=== PATIENT | male | born 1940 | race Caucasian/White ===

== ENCOUNTER 2020-05-25 15:04 | Inpatient (IN) | payer MEDICARE, OTHER ==
[~2020-05-25] VITALS: Ht 170.2 cm; Wt 75.7 kg
[2020-05-25 15:47] LABS: BASOPHILS # (AUTO) 0.1 (0.0-0.1); BASOPHILS % 0.9 % (0.0-1.0); EOSINOPHILS # (AUTO) 0.1 (0.0-0.4); EOSINOPHILS % 2.2 % (0.0-6.0); HEMATOCRIT 30.5 % (38.2-49.6); HEMOGLOBIN 10.1 g/dL (14.0-18.0); LYMPHOCYTES # (AUTO) 0.7 (1.0-3.2); LYMPHOCYTES % 11.6 % (18.0-39.1); MEAN CORPUSCULAR HGB CONC 33.1 g/dL (31-35); MEAN CORPUSCULAR VOLUME 96.5 fL (81-99); MONOCYTES # (AUTO) 0.4 (0.2-0.8); MONOCYTES % 6.1 % (4.4-11.3); NEUTROPHILS # (AUTO) 4.3 (2.1-6.9); NEUTROPHILS % 74.9 % (38.7-80.0); PLATELET COUNT 107 x10e3/uL (140-360); RED BLOOD COUNT 3.16 x10e6/uL (4.3-5.7); RED CELL DISTRIBUTION WIDTH 13.9 % (11.7-14.4)
[2020-05-25 16:11] LABS: ALBUMIN 2.9 g/dL (3.5-5.0); ALBUMIN/GLOBULIN RATIO 0.8 (0.8-2.0); ANION GAP 13.7 mmol/L (8-16); CALCIUM 8.7 mg/dL (8.4-10.2); CREATININE, SERUM 3.16 mg/dL (0.72-1.25); POTASSIUM 3.7 mmol/L (3.5-5.1)
[2020-05-25 16:19] LABS: CREATINE KINASE MB 6.9 ng/mL (0-5.0)
--- NOTE | 2020-05-25 16:30 | NUR ---
Notified Dr. Sebastian of abnormal labs.
[2020-05-25 16:47] LABS: EOSINOPHILS % (MANUAL) 4 % (0-7); HYPOCHROMASIA MODERATE; LYMPHOCYTES % (MANUAL) 19 % (19-48); MONOCYTES % (MANUAL) 7 % (3.4-9.0); NEUTROPHILS % (MANUAL) 65 % (40-74); POLYCHROMASIA FEW; RBC MORPHOLOGY COMMENT ABNORMAL; STOMATOCYTES SLIGHT
[2020-05-25 16:48] LABS: PLATELET ESTIMATE SLIGHTLY DECREASED; PLATELET MORPHOLOGY COMMENT FEW LARGE
--- NOTE | 2020-05-25 17:34 | Emergency Department Note ---
History of Present Illnes History of Present Illness Chief Complaint: General Medicine Complaints History of Present Illness This is a 79 year old male arrived to the ED after abnormal labs are noted PCPs office. Patient complaining of generalized malaise and weakness. Chief Complaint Comment PATIENT IN [facility] WITH COMPLAINTS OF FEVER AND GENERAL MALAISE X 5 DAYS; PATIENT STATES THAT HE WAS SEEN AT URGENT CARE YESTERDAY FOR THE SAME THING AND HAD LABS DONE; PATIENT STATES HE WAS CALLED BY DR LONGO AND TOLD TO COME TO THE ER FOR ABNORMAL LABS. PATIENT UNABLE TO SAY WHAT THE LABS WERE. PATIENT ALERT AND ORIENTED, APPEARS IN NO DSITRESS, DENIES PAIN, RESP EVEN AND NONLABORED. Historian: Patient, Family Member Arrival Mode: Car Onset (how long ago): unknown Severity: unable to specify Onset quality: unable to specify Duration (how long): day(s) Timing of current episode: constant Progression: unable to specify Chronicity: new Relieving factors: none Exacerbating factors: none Past Medical/Family History Physician Review I have reviewed the patient's past medical and family history. Any updates have been documented here. Past Medical History Recent Fever: Yes Clinical Suspicion of Infectio: Yes New/Unexplained Change in Ment: No Past Medical History: Hypertension, Diabetes, HI, Hypothyroidism, Hyperlipedemia Past Surgical History: CABG, PCI, Cataract Removal Other Surgery: BUNIONECTOMY Social History Smoking Cessation: Former smoker Counseling Performed: No Alcohol Use: None Any Illegal Drug Use: No Other Any Pre-Existing Lines (PICC,: No Review of Systems Review of Systems Constitutional: Reports no symptoms EENTM: Reports no symptoms Cardiovascular: Reports no symptoms Respiratory: Reports no symptoms Gastrointestinal: Reports no symptoms Genitourinary: Reports no symptoms Musculoskeletal: Reports no symptoms Integumentary: Reports no symptoms Neurological: Reports no symptoms Psychological: Reports no symptoms Endocrine: Reports no symptoms Hematological/Lymphatic: Reports no symptoms Physical Exam Related Data Allergies: Coded Allergies: No Known Allergies (Unverified , 05/25/20) Triage Vital Signs Vital Signs Date Time Temp Pulse Resp B/P (MAP) Pulse Ox O2 Delivery O2 Flow Rate FiO2 05/25/20 15:20 97.5 69 12 123/69 100 Room Air Vital signs reviewed: Yes Physical Exam CONSTITUTIONAL Constitutional: Present well-developed, Present well-nourished HENT HENT: Present normocephalic, Present atraumatic, Present oropharynx clear/moist, Present nose normal HENT L/R: Present left ext ear normal, Present right ext ear normal EYES Eyes: Reports PERRL, Reports conjunctivae normal NECK Neck: Present ROM normal PULMONARY Pulmonary: Present effort normal, Present breath sounds normal CARDIOVASCULAR Cardiovascular: Present regular rhythm, Present heart sounds normal, Present capillary refill normal, Present normal rate GASTROINTESTINAL Abdominal: Present soft, Present nontender, Present bowel sounds normal GENITOURINARY Genitourinary: Present exam deferred SKIN Skin: Present warm, Present dry MUSCULOSKELETAL Musculoskeletal: Present ROM normal NEUROLOGICAL Neurological: Present alert, Present oriented x 3, Present no gross motor or sensory deficits PSYCHOLOGICAL Psychological: Present mood/affect normal, Present judgement normal Results Laboratory Result Diagram: 05/25/20152905/25/201529 Laboratory Laboratory Tests Test 05/25/20 15:30 White Blood Count 5.78 x10e3/uL (4.8-10.8) Red Blood Count 3.16 x10e6/uL (4.3-5.7) Hemoglobin 10.1 g/dL (14.0-18.0) Hematocrit 30.5 % (38.2-49.6) Mean Corpuscular Volume 96.5 fL (81-99) Mean Corpuscular Hemoglobin 32.0 pg (28-32) Mean Corpuscular Hemoglobin Concent 33.1 g/dL (31-35) Red Cell Distribution Width 13.9 % (11.7-14.4) Platelet Count 107 x10e3/uL (140-360) Neutrophils (%) (Auto) 74.9 % (38.7-80.0) Lymphocytes (%) (Auto) 11.6 % (18.0-39.1) Monocytes (%) (Auto) 6.1 % (4.4-11.3) Eosinophils (%) (Auto) 2.2 % (0.0-6.0) Basophils (%) (Auto) 0.9 % (0.0-1.0) Neutrophils # (Auto) 4.3 (2.1-6.9) Lymphocytes # (Auto) 0.7 (1.0-3.2) Monocytes # (Auto) 0.4 (0.2-0.8) Eosinophils # (Auto) 0.1 (0.0-0.4) Basophils # (Auto) 0.1 (0.0-0.1) Absolute Immature Granulocyte (auto 0.25 x10e3/uL (0-0.1) Differential Total Cells Counted 100 Neutrophils % (Manual) 65 % (40-74) Lymphocytes % (Manual) 19 % (19-48) Monocytes % (Manual) 7 % (3.4-9.0) Eosinophils % (Manual) 4 % (0-7) Reactive Lymphocytes 5 Platelet Estimate Slightly decreased Platelet Morphology Comment Few large Polychromasia Few Hypochromasia Moderate Stomatocytes Slight Red Cell Morphology Comment Abnormal Sodium Level 132 mmol/L (136-145) Potassium Level 3.7 mmol/L (3.5-5.1) Chloride Level 98 mmol/L (98-107) Carbon Dioxide Level 24 mmol/L (22-29) Anion Gap 13.7 mmol/L (8-16) Blood Urea Nitrogen 92 mg/dL (7-26) Creatinine 3.16 mg/dL (0.72-1.25) Estimat Glomerular Filtration Rate 19 ML/MIN (60-) BUN/Creatinine Ratio 29 (6-25) Glucose Level 400 mg/dL (74-118) Calcium Level 8.7 mg/dL (8.4-10.2) Total Bilirubin 0.5 mg/dL (0.2-1.2) Aspartate Amino Transf (AST/SGOT) 93 IU/L (5-34) Alanine Aminotransferase (ALT/SGPT) 80 IU/L (0-55) Alkaline Phosphatase 86 IU/L (40-150) Creatine Kinase 248 IU/L (30-200) Creatine Kinase MB 6.90 ng/mL (0-5.0) Troponin I 0.050 ng/mL (0-0.300) Total Protein 6.7 g/dL (6.5-8.1) Albumin 2.9 g/dL (3.5-5.0) Globulin 3.8 g/dL (2.3-3.5) Albumin/Globulin Ratio 0.8 (0.8-2.0) Imaging Imaging results reviewed: Yes Assessment & Plan Medical Decision Making MDM 79-year-old male sent to the ED for abnormal lab work. Patient noted to have acute renal failure. Chest x-ray concerning for multifocal pneumonia. Patient covered with empiric antibiotics, blood cultures and lactic acid obtained. No source of organ Dysfunction present. Patient admitted for further workup and management. Assessment & Plan Final Impression: (1) Pneumonia (2) Acute renal failure Depart Disposition: ADMITTED Last Vital Signs Date Time Temp Pulse Resp B/P (MAP) Pulse Ox O2 Delivery O2 Flow Rate FiO2 05/25/20 16:59 77 20 115/47 100 Room Air 05/25/20 15:20 97.5 Home Meds Reported Medications Insulin Lispro (HUMALOG) 100 Unit/1 Ml Insuln.pen 05/25/20 Ferrous Sulfate (FERROUS SULFATE) 325 Mg Tablet, 325 MG PO DAILY 05/25/20 Cholecalciferol (Vitamin D3) (CHOLECALCIFEROL) 1 Gm Crystals, 1000 MG PO DAILY 05/25/20 Atorvastatin Calcium (LIPITOR) 20 Mg Tablet, 40 MG PO HS, TAB 05/25/20 Aspirin (ASPIRIN EC) 81 Mg Tablet.dr, 81 MG PO DAILY, #30 TAB 05/25/20 Sodium Bicarbonate (SODIUM BICARBONATE) 650 Mg Tablet, 650 MG PO TID, #90 TAB 05/25/20 Levothyroxine Sodium (SYNTHROID) 125 Mcg Tab, 125 MCG PO 0630, #30 TAB 05/25/20 Insulin Glargine (LANTUS 3ML PEN) 100 Units/1 Ml Inj, 25 UNITS SQ DAILY 05/25/20 Fenofibrate Nanocrystallized (FENOFIBRATE) 145 Mg Tablet, 54 MG PO DAILY 05/25/20 Carvedilol (CARVEDILOL) 3.125 Mg Tablet, 3.125 MG PO BID, #60 TAB 05/25/20 LEXY GALLEGOS DO May 25, 2020 17:34
[2020-05-25] MEDS: SODIUM CHLORIDE 0.9% 1000ML 1,000 ML IV SCH ×2 (17:40→22:09)
--- NOTE | 2020-05-25 17:45 | Diagnostic Imaging Report ---
EXAMINATION: CHEST SINGLE (PORTABLE) INDICATION: Altered mental status. COMPARISON: None FINDINGS: TUBES and LINES: None. LUNGS: Normal lung volumes. There is hazy opacification of bilateral lung bases and central pulmonary vascular congestion. PLEURA: No pleural effusion or pneumothorax. HEART AND MEDIASTINUM: The cardiomediastinal silhouette is unremarkable. There are atherosclerotic calcifications within the aorta. BONES AND SOFT TISSUES: No acute osseous lesion. Soft tissues are unremarkable. UPPER ABDOMEN: No free air under the diaphragm. IMPRESSION: 1. Hazy opacification in bilateral lung bases which may represent atelectasis and/or developing multifocal pneumonia in the proper clinical context. 2. Pulmonary vascular congestion without brandon pulmonary edema. Signed by: Jamarcus Tarango MD on 05/25/2020 5:42 PM
[2020-05-25] MEDS ORDERED: ONDANSETRON HCL INJ 2MG/ML 2ML 2 MG/ML VIAL IV PRN (18:30)
[2020-05-25] MEDS ORDERED: ACETAMINOPHEN 325 MG TAB PO PRN (18:30)
[2020-05-25] MEDS ORDERED: DEXTROSE 50% SYRINGE 50 ML IV PRN (19:00)
--- NOTE | 2020-05-25 19:18 | NUR ---
RECEIVED PATIENT FROM ED AT THIS TIME. PATIENT A&OX4. NO PAIN REPORTED. NO S&S OF DISTRESS NOTED. LUNG SOUNDS CLEAR. BOWEL SOUNDS ACTIVE. SKIN INTACT. NO EDEMA NOTED. PEDAL PULSES PALPABLE. IV TO R AC 20G ASYMPTOMATIC, INTACT, AND PATENT. BED LOCKED IN LOWEST POSITION, SIDE RAILS UPX2, CALL LIGHT INR EACH.
--- NOTE | 2020-05-25 20:15 | NUR ---
PER DR. GALLEGOS, LAB INFORMED OF NEED FOR RAPID COVID, COVID SWAB WILL BE SENT TO [facility].
--- NOTE | 2020-05-25 20:15 | NUR ---
Dr. Sebastian notified of chest xray report, new order received for blood cultures and lactic, assigned RN on floor (room 113) notified of new orders and possible PUI status.
[2020-05-25 20:18] VITALS: BP 137/77
[2020-05-25 20:19] VITALS: BP 137/77
[2020-05-25 22:08] LABS: BILIRUBIN,URINE NEGATIVE (NEGATIVE); CLARITY,URINE SL CLOUDY (CLEAR); COLOR,URINE STRAW (YELLOW); KETONES,URINE NEGATIVE (NEGATIVE); LEUKOCYTE ESTERASE ,URINE NEGATIVE (NEGATIVE); NITRITE,URINE NEGATIVE (NEGATIVE); PROTEIN,URINE DIPSTICK 2+ (NEGATIVE); URINE UROBILINOGEN 1 mg/dL (0.2 - 1)
[2020-05-25] MEDS: CEFTRIAXONE SOD 1 GM/NS 50 ML 50 ML IV SCH (22:09)
[2020-05-25] MEDS: INSULIN REGULAR, HUMAN 100 UNIT/1 ML 3ML VIAL SQ SCH (22:10)
[2020-05-25 22:28] LABS: BACTERIA,URINE MODERATE /HPF
[2020-05-25] MEDS ORDERED: HUMALOG100 UNIT/3 (22:40)
[2020-05-25] MEDS ORDERED: LIPITOR20 MG PO (22:40)
[2020-05-25] MEDS ORDERED: CHOLECALCIFEROL1 GM PO (22:40)
[2020-05-25] MEDS ORDERED: SYNTHROID125 MCG PO (22:40)
[2020-05-25] MEDS ORDERED: LANTUS 3ML100 UNITS/ SQ (22:40)
[2020-05-25] MEDS ORDERED: FENOFIBRATE145 MG PO (22:40)
[2020-05-25] MEDS ORDERED: CARVEDILOL3.125 MG PO (22:40)
[2020-05-25] MEDS ORDERED: FERROUS SULFAT325 MG PO (22:40)
[2020-05-25] MEDS ORDERED: ASPIRIN EC81 MG PO (22:40)
[2020-05-25] MEDS ORDERED: SODIUM BICARBO650 MG PO (22:40)
[2020-05-25] MEDS: AZITHROMYCIN 500MG/NS 250 ML 250 ML IV SCH (22:50)
[2020-05-26] VITALS (9 sets, daily range): BP systolic 109–170; BP diastolic 65–100
--- NOTE | 2020-05-26 00:32 | NUR ---
SPOKE WITH TELMA IN LAB, STATED COVID SWAB WAS SENT TO [facility] AND RESULTS USUALLY TAKE 6-8 HOURS, WILL CALL WITH RESULTS WHEN THEY ARE AVAILABLE. Addendum: 05/26/20 at 0509 by Kimberly Johnson RN SPOKE WITH TELMA IN LAB AGAIN, HE STATED HE CALLED [facility] FOR UPDATE ON RESULTS, THEY HAVE A MACHINE DOWN, SO RESULTS ARE TAKING LONGER THAN THE PROJECTED 6-8 HOURS, BUT WAS NOT GIVEN A NEW PROJECTED TIME FRAME FOR RESULTS. INFORMED CHARGE NURSE.
[2020-05-26 05:09] LABS: BASOPHILS % 0.5 % (0.0-1.0); EOSINOPHILS # (AUTO) 0.1 (0.0-0.4); HEMATOCRIT 29.3 % (38.2-49.6); HEMOGLOBIN 9.6 g/dL (14.0-18.0); LYMPHOCYTES % 16.9 % (18.0-39.1); MEAN CORPUSCULAR HEMOGLOBIN 31.7 pg (28-32); MEAN CORPUSCULAR HGB CONC 32.8 g/dL (31-35); MEAN CORPUSCULAR VOLUME 96.7 fL (81-99); MONOCYTES # (AUTO) 0.5 (0.2-0.8); NEUTROPHILS % 67.7 % (38.7-80.0); PLATELET COUNT 137 x10e3/uL (140-360); RED BLOOD COUNT 3.03 x10e6/uL (4.3-5.7); RED CELL DISTRIBUTION WIDTH 13.9 % (11.7-14.4)
[2020-05-26 05:34] LABS: ALBUMIN 2.5 g/dL (3.5-5.0); ALBUMIN/GLOBULIN RATIO 0.7 (0.8-2.0); ANION GAP 13.1 mmol/L (8-16); CALCIUM 8.6 mg/dL (8.4-10.2); CREATININE, SERUM 2.24 mg/dL (0.72-1.25); POTASSIUM 4.1 mmol/L (3.5-5.1)
--- NOTE | 2020-05-26 07:00 | NUR ---
RECEIVED PATIENT RESTING IN BED NO S/S OF DISTRESS. BED LOW, WHEELS LOCKED, SIDE RAILS X2. CALL LIGHT IN REACH WILL CONTINUE TO MONITOR PATIENT.
[2020-05-26] MEDS: INSULIN REGULAR, HUMAN 100 UNIT/1 ML 3ML VIAL SQ SCH ×4 (07:30→21:00)
[2020-05-26 12:07] LABS: CREATININE,URINE RANDOM 84.91 mg/dL (63-166); TOTAL PROTEIN, URINE 52.3 mg/dL (1-14)
[2020-05-26] MEDS: SODIUM CHLORIDE 0.9% 1000ML 1,000 ML IV SCH ×2 (12:09→16:07)
[2020-05-26 12:11] LABS: PROTEIN/CREATININE RATIO,URINE 0.62
--- NOTE | 2020-05-26 12:23 | Diagnostic Imaging Report ---
EXAM: Renal Ultrasound INDICATION: ^jae COMPARISON: None TECHNIQUE: Transverse and longitudinal images of the kidneys and bladder were obtained. FINDINGS: Right Kidney: Length: 11.8 cm Appearance: Normal echogenicity. Collecting system: No hydronephrosis Stones: None Cyst/Mass: None Left Kidney: Length: 12.9 cm Appearance: Normal echogenicity. Collecting system: No hydronephrosis Stones: None Cyst/Mass: None Bladder: No mass or calculi. Right ureteral jet visualized. Prevoid volume estimate of 95 cc. The prostate appears unremarkable. IMPRESSION: Unremarkable renal ultrasound. Signed by: Juanita Castillo MD on 05/26/2020 12:19 PM
--- NOTE | 2020-05-26 12:26 | Consultation ---
DATE OF CONSULTATION: 05/26/2020 HISTORY OF PRESENT ILLNESS: The patient is a 79-year-old pleasant gentleman, who presented with fatigue and malaise. Currently, awake, alert, lying supine, in no apparent distress. Denies nausea, vomiting, or shortness of breath. Has prior history of CKD, hyperlipidemia. Has history of coronary artery bypass surgery, type 2 diabetes with most likely diabetic nephropathy. Has seen Nephrology in [place], renal specialist in the past, but does not see anyone on a regular basis. Follows up with Dr. Lacho Greene. Currently, he is completely asymptomatic. Denies any nausea, vomiting, or shortness of breath. LABORATORY DATA: Show hemoglobin 9.6, white count 5.9, BUN and creatinine are 92 and 3.1 with a sodium 132. Has a 248, CK of 690. Has total protein of 6.7 and globulin 3.8. Glucose 400. SOCIAL HISTORY: He does not smoke or drink. FAMILY HISTORY: Significant for diabetes. MEDICATIONS: Currently, he is on azithromycin and ceftriaxone. Received normal saline 125 mL an hour, atorvastatin, which I am going to stop given the elevated LFTs, carvedilol 3.125 twice a day, cholecalciferol, and vitamin D3 1000 units p.o. daily. He is on enoxaparin, ferrous sulfate, insulin, levothyroxine, and sodium bicarbonate 650 p.o. t.i.d. He also was on fenofibrate, which I am going to stop given the association with chronic kidney disease. PHYSICAL EXAMINATION: GENERAL: He is awake, alert, and oriented x3, lying supine, in no apparent distress. VITAL SIGNS: Blood pressure 126/65, pulse rate 100, afebrile, and oxygen saturation 98%. HEAD AND NECK: Cornea clear. Oral mucosa moist. Neck veins flat. LUNGS: Somewhat decreased air entry at bases. Occasional rales. HEART: S1 and S2 audible. ABDOMEN: Soft and nontender. No apparent visceromegaly. EXTREMITIES: Lower extremity examination shows no edema. IMPRESSION AND PLAN: Lhuko-mp-hzbmetk kidney failure, likely underlying diabetic nephropathy. Coronavirus pending. No significant acid-base disturbance. Elevated CK. I will stop Lipitor. Urinalysis shows dipstick positive protein with 11-20 rbc's, zero wbc, no casts. Renal workup sent including kidney ultrasound, spot urine protein/creatinine ratio. Agree with choice of IV fluid, will need office followup, avoidance of nonsteroidal anti-inflammatory drug medication. Discussed with the patient. Please see orders. MD CANELO Milligan/NUNU /[id number]
[2020-05-26] MEDS: SODIUM BICARBONATE 650 MG TAB PO SCH ×2 (14:55→20:32)
[2020-05-26] MEDS: CARVEDILOL 3.125 MG TAB PO SCH (16:24)
[2020-05-26] MEDS: ENOXAPARIN SOD INJ 40 MG/0.4 ML SYR SC SCH (16:24)
--- NOTE | 2020-05-26 16:30 | NUR ---
Notified CLAUDINE Shook regarding patient complaint of shortness of breath and new expiratory crackles. New order for IV Lasix 40 mg x1 and chest x-ray. New orders implemented.
--- NOTE | 2020-05-26 16:35 | NUR ---
New order from CLAUDINE Shook to hold fluids at this time. Right AC 20 gauge H/L.
[2020-05-26] MEDS ORDERED: FUROSEMIDE INJ 10 MG/ML 4 ML VIAL IV ONE (16:45)
[2020-05-26] MEDS: CEFTRIAXONE SOD 1 GM/NS 50 ML 50 ML IV SCH (17:35)
[2020-05-26] MEDS: AZITHROMYCIN 500MG/NS 250 ML 250 ML IV SCH (17:35)
--- NOTE | 2020-05-26 18:08 | Diagnostic Imaging Report ---
EXAMINATION: CHEST SINGLE (PORTABLE) INDICATION: Dyspnea. COMPARISON: Chest x-ray on 05/25/2020 FINDINGS: TUBES and LINES: None. LUNGS: Normal lung volumes. There has been interval worsening of hazy opacification in the bilateral lung bases, right more then left. There is persistent mild central pulmonary vascular congestion. PLEURA: No pleural effusion or pneumothorax. HEART AND MEDIASTINUM: The cardiomediastinal silhouette is unremarkable. There are atherosclerotic calcifications within the aorta. BONES AND SOFT TISSUES: No acute osseous lesion. Soft tissues are unremarkable. UPPER ABDOMEN: No free air under the diaphragm. IMPRESSION: 1. Interval worsening of opacification bibasilar opacities most compatible with worsening atelectasis and/or pneumonia. 2. Mild central pulmonary vascular congestion. Signed by: Jamarcus Tarango MD on 05/26/2020 6:04 PM
--- NOTE | 2020-05-26 18:11 | NUR ---
Chest x-ray results given to CLAUDINE Shook. New order to start patient on nebulizer treatment q4 hrs. New orders implemented.
[2020-05-26] MEDS: ALBUTEROL SULF 0.083% NEB SOLN 3 ML NEB NEB SCH ×2 (19:40→23:40)
--- NOTE | 2020-05-26 20:32 | NUR ---
Patient refused bed alarm.
[2020-05-26] MEDS: INSULIN GLARGINE 100 UNITS/ML VIAL SQ SCH (21:00)
[2020-05-26] MEDS ORDERED: ATORVASTATIN 20 MG TAB PO SCH (21:00)
[2020-05-26] MEDS ORDERED: ATORVASTATIN 40 MG TAB PO SCH (21:00)
--- NOTE | 2020-05-26 22:29 | History and Physical ---
PRIMARY CARE PHYSICIAN: Dr. Lacho Greene. CHIEF COMPLAINT: Reports generalized weakness and shortness of breath. HISTORY OF PRESENT ILLNESS: This is a 79-year-old male with past medical history of high blood pressure, high cholesterol, diabetes, CAD status post stents and triple bypass, hypothyroidism, presented to the ER with complaints of generalized weakness and increased shortness of breath. He reports the symptoms started a week ago and had gone to see his PCP and he had some lab work done and his PCP called him and advised him to go to the nearest ER for abnormal labs. He is unable to tell me what those abnormal labs are, but creatinine here is upon arrival 3.16. He reports subjective fever, chills, sinus headache, generalized weakness with dry cough and shortness of breath with exertion. He denies diaphoresis, abdominal pain, chest pain, nausea or vomiting, dysuria, or hematuria. He denies any night sweats, any lightheadedness or passing out, palpitations. He is admitted for further evaluation. PAST MEDICAL HISTORY: 1. Diabetes. 2. Hypertension. 3. CAD, status post triple bypass. 4. Hypothyroidism. PAST SURGICAL HISTORY: 1. Triple bypass. 2. Cardiac stent. 3. Bilateral cataract. FAMILY MEDICAL HISTORY: He reports father had diabetes and heart attack and mother of old age. SOCIAL HISTORY: He reports chain tobacco and occasional alcohol use. He denies illicit drug use. ALLERGIES: NO KNOWN DRUG ALLERGIES. REVIEW OF SYSTEMS: Twelve-system reviewed and negative except as reported in HPI. PHYSICAL EXAMINATION: VITAL SIGNS: Temperature 98.1, pulse is 80, respirations 18, blood pressure 109/74, pulse ox is 100% on room air. GENERAL: In no acute distress. HEENT: Normocephalic and atraumatic. NECK: Supple. LUNGS: Decreased breath sounds. CARDIOVASCULAR: Regular rate and rhythm. GI: Soft and nontender. NEUROLOGIC: Alert, awake, and oriented x3. MUSCULOSKELETAL: Moves all extremities. EXTREMITIES: No edema. SKIN: Dry and intact. PSYCH: Calm. LABORATORY DATA: WBC 5.78, hemoglobin 10.1, hematocrit 30.5, and platelet 107. Sodium 138, potassium 4.1, creatinine 2.24, estimated GFR 28, glucose 189, lactic acid 1.3, AST 69, ALT 69, CK 248, troponin I 0.050. BNP 1426. Albumin 2.5, globulin 3.7. UA is slightly cloudy with negative leukocyte esterase and moderate bacteria. Total protein 52.3. Urine creatinine 84.91, protein creatinine ratio 0.62. COVID PCR is pending. Blood cultures pending. IMAGING: Chest x-ray shows hazy opacification in bilateral lung bases, which may represent atelectasis and/or developing multifocal pneumonia in appropriate clinical context, pulmonary vascular congestion without brandon pulmonary edema. IMPRESSION AND PLAN: 1. Generalized weakness with questionable community-acquired pneumonia versus pulmonary edema. He was started on Rocephin and azithromycin. Nebs q.4 hours. 2. Acute on chronic kidney disease. Creatinine was 3.16 upon arrival. He was given IV fluid and this morning, 2.24. Renal consulted. 3. Diabetes type 2. Continue sliding scale insulin. 4. Hypertension. Continue Coreg b.i.d. 5. History of coronary artery disease, status post triple bypass. Continue aspirin and statin. 6. Hypothyroidism. Continue levothyroxine 125 mcg daily. We will check TSH level. 7. Questionable congestive heart failure. BNP is over 1000. We will check echocardiogram. 8. Elevated LFTs. AST and ALT 69. We will repeat labs in the a.m. Denies a history of hepatitis. 9. Deep vein thrombosis prophylaxis. Lovenox subcu. Dictated by KALYAN Becerril Karie Menard MD MY/MODL /[id number]
[2020-05-27] MEDS: ALBUTEROL SULF 0.083% NEB SOLN 3 ML NEB NEB SCH ×6 (03:00→22:15)
[2020-05-27 05:32] LABS: BASOPHILS % 0.3 % (0.0-1.0); EOSINOPHILS # (AUTO) 0.1 (0.0-0.4); EOSINOPHILS % 1.1 % (0.0-6.0); HEMATOCRIT 29.6 % (38.2-49.6); HEMOGLOBIN 9.7 g/dL (14.0-18.0); LYMPHOCYTES # (AUTO) 1.1 (1.0-3.2); LYMPHOCYTES % 15.6 % (18.0-39.1); MEAN CORPUSCULAR HEMOGLOBIN 31.7 pg (28-32); MEAN CORPUSCULAR HGB CONC 32.8 g/dL (31-35); MEAN CORPUSCULAR VOLUME 96.7 fL (81-99); MONOCYTES # (AUTO) 0.6 (0.2-0.8); MONOCYTES % 8.4 % (4.4-11.3); NEUTROPHILS # (AUTO) 5.1 (2.1-6.9); NEUTROPHILS % 72.6 % (38.7-80.0); PLATELET COUNT 166 x10e3/uL (140-360); RED BLOOD COUNT 3.06 x10e6/uL (4.3-5.7)
[2020-05-27] MEDS: LEVOTHYROXINE SODIUM 125 MCG TAB PO SCH (05:40)
[2020-05-27 06:05] LABS: ALBUMIN 2.5 g/dL (3.5-5.0); ALBUMIN/GLOBULIN RATIO 0.7 (0.8-2.0); ANION GAP 15.1 mmol/L (8-16); CALCIUM 8.7 mg/dL (8.4-10.2); CREATININE, SERUM 1.74 mg/dL (0.72-1.25); POTASSIUM 4.1 mmol/L (3.5-5.1)
[2020-05-27] MEDS: ASPIRIN 81 MG ENTERIC COATED PO SCH (08:11)
[2020-05-27] MEDS: SODIUM BICARBONATE 650 MG TAB PO SCH ×3 (08:11→20:32)
[2020-05-27] MEDS: FERROUS SULFATE 325 MG TAB PO SCH (08:11)
[2020-05-27] MEDS: CHOLECALCIFEROL 1,000 UNIT TAB PO SCH (08:11)
[2020-05-27] MEDS: CARVEDILOL 3.125 MG TAB PO SCH ×2 (08:11→16:09)
[2020-05-27 08:20] VITALS: BP 119/67
[2020-05-27] MEDS: INSULIN REGULAR, HUMAN 100 UNIT/1 ML 3ML VIAL SQ SCH ×4 (08:20→21:20)
[2020-05-27 09:00] VITALS: BP 119/67
[2020-05-27] MEDS ORDERED: CHOLECALCIFEROL 1000 MG PO SCH (09:00)
[2020-05-27] MEDS ORDERED: FENOFIBRATE 145 MG TAB PO SCH (09:00)
[2020-05-27] MEDS ORDERED: FENOFIBRATE 54 MG PO SCH (09:00)
--- NOTE | 2020-05-27 09:07 | NUR ---
EDUCATED ABOUT IMM, SIGNED, FILED IN CHART, WITH COPY LEFT WITH FAMILY AT BEDSIDE.
[2020-05-27 12:01] VITALS: BP 133/66
[2020-05-27] MEDS: ENOXAPARIN SOD INJ 40 MG/0.4 ML SYR SC SCH (16:09)
[2020-05-27 16:26] VITALS: BP 159/92
[2020-05-27] MEDS: AZITHROMYCIN 500MG/NS 250 ML 250 ML IV SCH (17:20)
[2020-05-27] MEDS: CEFTRIAXONE SOD 1 GM/NS 50 ML 50 ML IV SCH (17:20)
--- NOTE | 2020-05-27 18:25 | Diagnostic Imaging Report ---
EXAMINATION: CHEST SINGLE (PORTABLE) INDICATION: Shortness of breath. COMPARISON: Multiple prior chest x-rays including most present on 05/26/2020 FINDINGS: TUBES and LINES: None. LUNGS: Normal lung volumes. No interval change in hazy opacification in the bilateral lung bases, right more then left. There is persistent mild central pulmonary vascular congestion. PLEURA: No pleural effusion or pneumothorax. HEART AND MEDIASTINUM: The cardiomediastinal silhouette is unremarkable. There are atherosclerotic calcifications within the aorta. BONES AND SOFT TISSUES: No acute osseous lesion. Soft tissues are unremarkable. UPPER ABDOMEN: No free air under the diaphragm. IMPRESSION: 1. No interval change in opacification bibasilar opacities most compatible with worsening atelectasis and/or pneumonia. 2. Persistent mild central pulmonary vascular congestion. Signed by: Jamarcus Tarango MD on 05/27/2020 6:22 PM
--- NOTE | 2020-05-27 19:00 | Progress Note ---
DATE: 05/27/2020 PATHOLOGY TECH: Dr. Hernandez with Nephrology. SUBJECTIVE: The patient is resting in bed, feeling a little bit better overall. He denies any chest pain, shortness of breath, fever, or chills. PHYSICAL EXAMINATION: VITAL SIGNS: Temperature 97.4, pulse is 59, respirations 17, blood pressure 133/66, and pulse ox 94% on room air. GENERAL: No acute distress. HEENT: Normocephalic and atraumatic. NECK: Supple. LUNGS: Decreased breath sounds. CARDIOVASCULAR: Regular rate and rhythm. GI: Soft and nontender. NEUROLOGIC: Alert, awake, and oriented x3. MUSCULOSKELETAL: Moves all extremities. SKIN: Dry and intact. PSYCH: Calm. LABORATORY DATA: WBC 7.04, hemoglobin 9.7, hematocrit 29.6, and platelet 166. Sodium 141, potassium 4.1, BUN 56, creatinine 1.74, estimated GFR 38, and glucose 145. AST 79 and ALT 77. BNP 1426. Albumin is 2.5. Blood culture negative so far. Chest x-ray, interval worsening of opacification, bibasilar opacities most compatible with worsening atelectasis and/or pneumonia, mild central pulmonary vascular congestion noted. IMPRESSION AND PLAN: 1. Questionable community-acquired pneumonia versus pulmonary edema. Chest x-ray shows pulmonary congestion and worsening opacification. IV fluid was discontinued and given Lasix x1. He is started on nebs and we will continue on Rocephin and azithromycin. 2. Umghk-vw-ilzrvgb kidney disease. Creatinine is improved to 1.74. Renal on the case. 3. Type 2 diabetes. Continue sliding scale insulin. 4. Hypertension. Continue Coreg. 5. History of coronary artery disease, status post triple bypass. Continue aspirin and statin. 6. Hypothyroidism. We will check TSH level. Continue levothyroxine 125 mcg daily. 7. Likely congestive heart failure. BNP was 1400. Pending echocardiogram. 8. Elevated LFTs. He denies any abdominal pain or history of hepatitis. He does, however, report drinking frequently. Discussed cessation. We will check hepatitis panel. 9. Deep vein thrombosis prophylaxis. Lovenox subcutaneous. PLAN: Continue IV antibiotics. We will check chest x-ray and await on echo. Dictated by Bouchra Yang, ANP Yiching MD ROBERT Jackson/NUNU /[id number]
--- OUTSIDE RECORDS SUMMARY | 2020-05-27 19:08 | XMS REPORT | Clinical Summary ---
Author Author [facility] Organization [facility] Address Unknown Phone Unavailable Care Team Providers Care Leather Grader Name Role Phone Lacho Greene MD PCP Allergies No Known Active Allergies Medications End Date Status Medication Sig Dispensed Refills Start Date Active NON FORMULARY Tumeric 0 Active NON FORMULARY Osteo.-Bifex 0 02/01/2020 insulin lispro (HumaLOG) Inject 0-7 10 mL 2 0 100 unit/mL injection Units under 9 the skin 3 (three) times a day with meals. 02/02/2020 insulin GLARGINE (LANTUS) Inject 25 10 mL 2 100 unit/mL injection Units under 9 (vial) the skin daily. 02/01/2020 insulin lispro (HumaLOG) Inject 8 10 mL 1 0 100 unit/mL injection Units under 9 the skin 3 (three) times a day before meals. 02/02/2020 aspirin (ECOTRIN) 325 MG Take 1 tablet 30 tablet 0 enteric coated tablet (325 mg 9 total) by mouth daily. 02/02/2020 fenofibrate (LOFIBRA) 54 Take 1 tablet 30 tablet 0 MG tablet (54 mg total) 9 by mouth daily. 02/02/2020 levothyroxine (SYNTHROID, Take 1 tablet 30 tablet 0 LEVOXYL) 125 mcg tablet (125 mcg 9 total) by mouth daily. 02/02/2020 multivitamin with Take 1 tablet 30 tablet 11 minerals tablet by mouth 9 daily. 02/01/2020 atorvastatin (LIPITOR) 40 Take 1 tablet 30 tablet 0 MG tablet (40 mg total) 9 by mouth nightly. 02/01/2020 carvedilol (COREG) 3.125 Take 1 tablet 60 tablet 0 MG tablet (3.125 mg 9 total) by mouth 2 (two) times a day. 02/02/2020 cholecalciferol, vitamin Take 1 tablet 30 tablet 0 D3, (VITAMIN D3) 1,000 (1,000 Units 9 unit tablet total) by mouth daily. 02/01/2020 sodium bicarbonate 650 mg Take 1 tablet 90 tablet 0 tablet (650 mg 9 total) by mouth 3 (three) times a day. 02/01/2020 ferrous sulfate 325 (65 Take 1 tablet 30 tablet 0 FE) MG EC tablet (325 mg 9 total) by mouth daily with breakfast. 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 oth ang pctr s 11/26/2018 Overview: Added automatically from request for lianna kingliane [id number] Encounters Care Team Description Date Type Specialty Tamara Cesar, CLAUDINE 09/16/2019 Refill Endocrinology after 05/25/2019 Surgical History Surgery Date Site/Laterality Comments CORONARY STENT PLACEMENT x 5 BUNIONECTOMY 06/22/1999 - 07/22/1999 CATARACT EXTRACTION 08/23/2018 - 09/19/2018 CABG, WITH ENDOSCOPIC 01/27/2019 Chest/N/A Procedur e: CORONARY ARTERY BYPASS OF CONNER TO LAD, VEIN HARVESTING SVG TO OM, SVG TO RCA; Carla geon: Angel Amaya MD; Location: [facility]; Service: Cardiothoracic; Laterality: N /A; Medical devices from this surgery are i n the Implants section. Medical History Medical History Date Comments Heart disease Diabetes mellitus (HCC) iddm Hyperlipidemia Hypertension Hypothyroid CHF (congestive heart failure) (HCC) Myocardial infarction (HCC) Arthritis Cataract Kidney stones Hypercholesteremia Type 2 diabetes mellitus (HCC) Coronary artery disease Anesthesia NHAP/NFHAP; denies chest pa in, SOB, or dizziness Does not exercise active Daily;can climb 2 fl ights of stairs Coronary artery disease Family History Medical History Relation Name Comments Diabetes Father Heart disease Father Hypertension Father Kidney disease Father Relation Name Status Comments Father Mother Social History Date Tobacco Use Types Packs/Day Years Used Never Smoker Smokeless Tobacco: Chew Current User Tobacco Cessation: Counseling Given: Yes Drinks/Week oz/Week Comments Alcohol Use 2 Cans of beer 2.0 2 /week Yes Alcohol Habits Answer Date Recorded How often do you have a drink containing alcohol? Never 11/28/2018 How many drinks containing alcohol do you have on No t asked a typical day when you are drinking? How often do you have six or more drinks on one Not asked occasion? Sex Assigned at Date Recorded Not on file Last Filed Vital Signs Not on file Plan of Treatment Health Maintenance Due Date Last Done Comments DIABETES: RETINAL EYE 1950 EXAM DIABETIC FOOT EXAM 1950 SHINGLES VACCINES (#1) 1990 65+ PNEUMOCOCCAL VACCINE 2005 (1 of 1 - PPSV23) INFLUENZA VACCINE 02/21/2020 Implants Device Identifier Shelf Expiration Date Model / Serial / L ot Implanted Type Area Manufactur er [id number] / / Lead Pace Mycrdl Bipolar Coax Tmpry Cardiac N/A: N/A [employer] Streamline - [id number] Pacing [place] - Implanted: Qty: 1 on 01/27/2019 by Leads or CAR Angel Thompson MD Electrodes RYHT YM at [facility] or [facility] [id number] / / Clip Ligtng Weck Hemoclip Plus W/ Medical N/A: N/A TELEFLEX Tape Ti Med - [id number] Clips for MEDICAL Implanted: Qty: 1 on 01/27/2019 by Internal Angel Amaya MD Use at [facility] [id number] / / Clip Ligtng Rafa Hemoclip Plus W/ Medical N/A: N/A WECK Tape Ti Sm Strngpnt - [id number] Clips for CLOSU RE Implanted: Qty: 1 on 01/27/2019 by Internal SYS Angel Packer MD Use at [facility] [id number] / / Clip Ligtng Weck Hemoclip Plus W/ Medical N/A: N/A WECK Tape Ti Sm Strngpnt - [id number] Clips for CLOSU RE Implanted: 01/27/2019 at [facility] Internal [facility] (Quantity not on file) Use [id number] / / Clip Ligtng Weck Hemoclip Plus W/ Medical N/A: N/A WECK Tape Ti Sm Strngpnt - [id number] Clips for CLOSU RE Implanted: Qty: 1 on 01/27/2019 by Internal SYS Angel Packer MD Use at [facility] [id number] / / Clip Ligtng Weck Hemoclip Plus W/ Medical N/A: N/A WECK Tape Ti Med Lg - [id number] Clips for CLOSURE Implanted: Qty: 1 on 01/27/2019 [facility] at [facility] [id number] / / Clip Ligtng Weck Hemoclip Plus W/ Medical N/A: N/A TELEFLEX Tape Ti Med - [id number] Clips for MEDICAL Implanted: Qty: 1 on 01/27/2019 by Internal Angel Amaya MD Use at [facility] 10/28/2020 [id number] / / [id number] Material Bone Hmsts Wtrsolbl 2.5g Orthopedic N/A: N/A Ostene - [id number] Trauma Implanted: Qty: 1 on 01/27/2019 by Implants Angel Amaya MD at [facility] 09/19/2023 [id number] / / [id number] [facility] Vasclr Ptfe 1.2x10cm Vascular N/A: N/A BARD 1.65mm - [id number] Graft PERIPHERAL Implanted: Qty: 1 on 01/27/2019 by VASCULAR Angel Amaya MD at [facility] Results Not on fileafter 05/25/2019 Insurance Type Payer Benefit Subscriber ID Effective Phone Address Plan / Dates Group HMO [facility] MEDICARE [facility] [id number] 2018-P MEDICARE resent HMO/O Advance Directives For more information, please contact: [phone] Patient Manager Net Explanation Type Date Recorded Advance Directives, 11/27/2018 8:06 AM Living Will and Medical Power of Maintenance Parts Technician
[2020-05-27 20:00] VITALS: BP 106/67
--- NOTE | 2020-05-27 20:27 | NUR ---
PATIENT REFUSED TO SLEEP IN THE BED. HE PREFERRED TO SLEEP IN THE COUCH.
--- NOTE | 2020-05-27 20:28 | NUR ---
AIR CONDITION TEMP ADJUSTED. PATIENT REFUSED WARM BLANKET.
--- NOTE | 2020-05-27 20:30 | NUR ---
SUPERVISOR WASH HOUSE MADE AWARE THAT PATIENT'S STATE THAT THE BED IS UNCOMFORTABLE AND COLD.
[2020-05-27] MEDS: INSULIN GLARGINE 100 UNITS/ML VIAL SQ SCH (21:20)
[2020-05-27 22:00] VITALS: BP 106/67
[2020-05-28] VITALS (8 sets, daily range): BP systolic 122–149; BP diastolic 49–93
[2020-05-28] MEDS: ALBUTEROL SULF 0.083% NEB SOLN 3 ML NEB NEB SCH ×6 (03:00→23:50)
[2020-05-28] MEDS: LEVOTHYROXINE SODIUM 125 MCG TAB PO SCH (05:15)
[2020-05-28 06:13] LABS: ANION GAP 15.1 mmol/L (8-16); CALCIUM 9.1 mg/dL (8.4-10.2); CREATININE, SERUM 1.72 mg/dL (0.72-1.25); POTASSIUM 4.1 mmol/L (3.5-5.1)
[2020-05-28] MEDS: ASPIRIN 81 MG ENTERIC COATED PO SCH (08:44)
[2020-05-28] MEDS: FERROUS SULFATE 325 MG TAB PO SCH (08:44)
[2020-05-28] MEDS: CARVEDILOL 3.125 MG TAB PO SCH ×2 (08:44→16:18)
[2020-05-28] MEDS: INSULIN REGULAR, HUMAN 100 UNIT/1 ML 3ML VIAL SQ SCH ×4 (08:44→22:24)
[2020-05-28] MEDS: CHOLECALCIFEROL 1,000 UNIT TAB PO SCH (08:44)
[2020-05-28] MEDS: SODIUM BICARBONATE 650 MG TAB PO SCH ×3 (08:44→22:21)
[2020-05-28] MEDS: FUROSEMIDE INJ 10 MG/ML 4 ML VIAL IV SCH (12:49)
--- NOTE | 2020-05-28 13:39 | Progress Note ---
DATE: 05/28/2020 FIRE WARDEN: Dr. Hernandez, Nephrology. SUBJECTIVE: The patient is sitting in bed. Reports feeling cold, but otherwise breathing is improved, he denies any chest pain, nausea, vomiting, fever, or chills. PHYSICAL EXAMINATION: VITAL SIGNS: Temperature 98.4, pulse is 84, respirations 20, blood pressure 126/84, pulse ox is 100% on room air. GENERAL: No acute distress. HEENT: Normocephalic, atraumatic. NECK: Supple. LUNGS: With decreased breath sounds. CARDIOVASCULAR: Regular rate and rhythm. GI: Soft and nontender. NEUROLOGIC: Alert, awake, and oriented x3. MUSCULOSKELETAL: Moves all extremities. SKIN: Dry and intact. PSYCH: Calm. LABORATORY DATA: Sodium 140, potassium 4.1, BUN 44, creatinine 1.72, estimated GFR is 39, glucose 190, calcium 9.1. Hepatitis panel pending. Blood culture negative. IMPRESSION AND PLAN: 1. Questionable community-acquired pneumonia versus pulmonary edema. Chest x-ray, still with opacification. We will give Lasix IV daily. Continue on Rocephin, azithromycin, and neb. 2. Acute on chronic kidney disease. Creatinine is 1.72. Renal on the case. Agrees with diuretic. 3. Type 2 diabetes. Continue sliding scale insulin. 4. Hypertension. Continue Coreg. 5. Systolic congestive heart failure. Echo shows EF of 30%-35%. We will continue with Coreg and diuretics. 6. History of coronary artery disease, status post triple bypass. Continue aspirin and statin. 7. Hypothyroidism. Continue levothyroxine at 125 mcg daily. 8. Elevated LFT. He reports alcohol use, pending hepatitis panel. 9. Gastrointestinal and deep venous thrombosis prophylaxis. Lovenox subcu. Plan is to continue IV antibiotics, nebs and diuretics. We will repeat labs in a.m. Anticipate discharge home tomorrow if continues to improve. Dictated by KALYAN Becerril Karie Menard MD MY/MODL /[id number]
[2020-05-28] MEDS ORDERED: ONDANSETRON HCL 4 MG ORAL DISINTEGRATING TAB PO PRN (14:00)
[2020-05-28] MEDS: ENOXAPARIN SOD INJ 40 MG/0.4 ML SYR SC SCH (16:13)
[2020-05-28] MEDS: CEFTRIAXONE SOD 1 GM/NS 50 ML 50 ML IV SCH (17:51)
[2020-05-28] MEDS: AZITHROMYCIN 500MG/NS 250 ML 250 ML IV SCH (17:51)
--- NOTE | 2020-05-28 19:00 | NUR ---
RECEIVED PATIENT IN BEDSIDE SHIFT REPORT. PATIENT RESTING IN RECLINER AT THIS TIME. NO PAIN REPORTED. NO S&S OF DISTRESS NOTED. IV RUNNING ABX AT THIS TIME, ASYMPTOMATIC. TELE MONITOR #[id number] ON, SHOWING SR WITH OCCASIONAL PVCS. CALL LIGHT IN REACH. WILL CONTINUE TO MONITOR.
[2020-05-28] MEDS: INSULIN GLARGINE 100 UNITS/ML VIAL SQ SCH (22:24)
--- NOTE | 2020-05-29 | NUR ---
DURING MIDNIGHT VITALS, PULSE OX MONITOR SHOWED HR OF 38, AT SAME TIME, TELE MONITOR SHOWED HR OF 78. RADIAL PULSE PALPATION MATCHED TELE MONITOR. AFTER DISCUSSING POSSIBLE CAUSES, PATIENT REPORTS HE HAS ISSUES WITH CIRCULATION IN HIS HANDS. WILL CONTINUE TO MONITOR.
[2020-05-29 00:47] VITALS: BP 106/64
[2020-05-29] MEDS: ALBUTEROL SULF 0.083% NEB SOLN 3 ML NEB NEB SCH ×4 (03:00→14:30)
[2020-05-29 05:00] VITALS: BP 106/64
[2020-05-29] MEDS: LEVOTHYROXINE SODIUM 125 MCG TAB PO SCH (06:27)
[2020-05-29 07:02] LABS: ALBUMIN 2.4 g/dL (3.5-5.0); ALBUMIN/GLOBULIN RATIO 0.7 (0.8-2.0); ANION GAP 12.7 mmol/L (8-16); CALCIUM 8.9 mg/dL (8.4-10.2); CREATININE, SERUM 1.44 mg/dL (0.72-1.25); POTASSIUM 3.7 mmol/L (3.5-5.1)
[2020-05-29] MEDS: INSULIN REGULAR, HUMAN 100 UNIT/1 ML 3ML VIAL SQ SCH ×3 (07:30→16:59)
[2020-05-29] MEDS: ASPIRIN 81 MG ENTERIC COATED PO SCH (08:29)
[2020-05-29] MEDS: SODIUM BICARBONATE 650 MG TAB PO SCH ×2 (08:30→15:28)
[2020-05-29] MEDS: FUROSEMIDE INJ 10 MG/ML 4 ML VIAL IV SCH (08:30)
[2020-05-29] MEDS: CHOLECALCIFEROL 1,000 UNIT TAB PO SCH (08:30)
[2020-05-29] MEDS: FERROUS SULFATE 325 MG TAB PO SCH (08:30)
[2020-05-29] MEDS: CARVEDILOL 3.125 MG TAB PO SCH ×2 (08:32→16:57)
[2020-05-29 08:53] VITALS: BP 135/56
[2020-05-29 09:56] VITALS: BP 135/56
[2020-05-29] MEDS ORDERED: LASIX20 MG PO (12:11)
[2020-05-29 12:54] VITALS: BP 120/67
--- NOTE | 2020-05-29 13:13 | Diagnostic Imaging Report ---
EXAMINATION: CHEST SINGLE (PORTABLE) COMPARISON: Chest x-ray 05/27/2020 INDICATION: ^PNA/EDEMA ^[id number] ^[id number] DISCUSSION: Frontal view of the chest obtained at 1234 hours. HEART AND MEDIASTINUM: Stable cardiac bypass changes and calcifications of the aortic arch LINES: None. LUNGS: Diffuse hyperinflation. Bibasilar airspace opacities are similar, right lung greater than left. Vascular markings are normal. No interstitial edema. PLEURA: Trace blunting of the right lateral costophrenic angle suggestive of pleural effusion or pleural thickening. BONES AND SOFT TISSUES: No focal osseous lesion. The soft tissues are normal. IMPRESSION: 1. Stable bibasilar airspace opacities, right lung greater than left. 2. Trace right costophrenic angle thickening, either pleural effusion or pleural thickening. Signed by: Dr. Kyler Simms MD on 05/29/2020 1:10 PM
[2020-05-29] MEDS: CEFTRIAXONE SOD 1 GM/NS 50 ML 50 ML IV SCH (14:53)
[2020-05-29] MEDS: AZITHROMYCIN 500MG/NS 250 ML 250 ML IV SCH (15:35)
--- NOTE | 2020-05-29 15:45 | NUR ---
Administered antibiotics earlier orderers received form Dr. CLAUDINE Brooks patient to discharge after antibiotics per orders.
[2020-05-29] MEDS: ENOXAPARIN SOD INJ 40 MG/0.4 ML SYR SC SCH (16:56)
[2020-05-29 17:03] VITALS: BP 128/66
--- NOTE | 2020-05-29 18:44 | NUR ---
Patient discharged home verbalized understanding of discharge instructions. Instructed to follow up with nephrology and cardiology verbalized understanding.
--- NOTE | 2020-05-30 21:58 | Discharge Summary ---
PCP: Dr. Lacho Greene. CONSULTANTS: Dr. Abbi Hernandez, Nephrology. DISCHARGE DIAGNOSES: 1. Community acquired pneumonia. 2. Rbhhg-pf-gnvykgq kidney disease. 3. Type 2 diabetes. 4. Hypertension. 5. New onset systolic congestive heart failure. 6. History of coronary artery disease, status post triple bypass. 7. Hypothyroidism. 8. Elevated LFTs. PROCEDURES: None. HOSPITAL COURSE: Mr. Perez presented to the ER with complaints of shortness of breath and abnormal lab results. His kidney function upon arrival was 3.16. He was started on IV fluids, chest x-ray showed hazy opacification in bilateral lung bases, which may represent atelectasis and/or developing multifocal pneumonia in appropriate clinical context. Pulmonary vascular congestion without brandon pulmonary edema was also noted, was complaining of shortness of breath. He was started on IV antibiotics and continued to trend creatinine. Renal ultrasound was done, which was unremarkable. He continued to improve. BNP was 1426. Echo was done, which showed EF of 30% to 35%. He was given Lasix and monitored. Shortness of breath continued to improve. He completed a 5-day treatment of antibiotics with Rocephin and azithromycin. He now feels better, he is able to lie flat in bed with no increased shortness of breath. Vital signs remained stable. Afebrile. Blood cultures are negative. Creatinine today is 1.4. He is cleared by renal for discharge, so we will discharge home to follow up with PCP and Renal. PHYSICAL EXAMINATION: VITAL SIGNS: Temperature 98.2, pulse is 78, respirations 18, blood pressure 128/66, pulse ox 100% on room air. GENERAL: No acute distress. HEENT: Normocephalic and atraumatic. NECK: Supple. LUNGS: Clear to auscultation. CARDIOVASCULAR: Regular rate and rhythm. GI: Soft and nontender. NEUROLOGIC: Alert, awake, and oriented x3. MUSCULOSKELETAL: Moves all extremities. No edema. SKIN: Dry and intact. PSYCH: Calm. DISCHARGE MEDICATION: Please see med reconciliation. FOLLOWUP: Follow up with PCP and Renal in 1 to 2 weeks for repeat BMP. TIME SPENT: Total time at discharge time is 32 minutes. Dictated by KALYAN Becerril Emching MD [facility]/DIGNAL /[id number] cc: Lacho Greene
== END 2020-05-29 18:15 | disposition home or self-care (01) | DRG 193 ==
LOC: ER 16:16 → ERHOLD 17:30 → MED/SURG 19:23 → OBSVTOIN 05-27 08:55
PROVIDERS: ADMIT Internal Medicine; ATTEND Internal Medicine
DX: J15.9 Unspecified bacterial pneumonia (principal); I50.21 Acute systolic (congestive) heart failure; N17.9 Acute kidney failure, unspecified; I13.0 Hypertensive heart and chronic kidney disease with heart failure and stage 1 through stage 4 chronic kidney disease, or unspecified chronic kidney disease; E11.22 Type 2 diabetes mellitus with diabetic chronic kidney disease; N18.30 Chronic kidney disease, stage 3 unspecified; I25.2 Old myocardial infarction; E03.9 Hypothyroidism, unspecified; E78.5 Hyperlipidemia, unspecified; Z95.1 Presence of aortocoronary bypass graft; Z87.891 Personal history of nicotine dependence; I25.10 Atherosclerotic heart disease of native coronary artery without angina pectoris; Z95.5 Presence of coronary angioplasty implant and graft; E11.21 Type 2 diabetes mellitus with diabetic nephropathy; R79.89 Other specified abnormal findings of blood chemistry; Z20.828 Contact with and (suspected) exposure to other viral communicable diseases; Z79.82 Long term (current) use of aspirin; Z79.84 Long term (current) use of oral hypoglycemic drugs
CPT/HCPCS: 36415; 71045; 76770; 80048; 80053; 81001; 82550; 82553; 82570; 82948; 83605; 83880; 84156; 84484; 85025; 87040; 93005; 93306; 94640; 96372; 99284; G0378; J0456; J0696; J1650; J1815; J1817; J1940; J7030